=== PATIENT | female | born 1950 | race Caucasian/White ===

== ENCOUNTER → 2017-04-14 12:15 | Outpatient (CLI) | payer MEDICARE, SELFPAY ==
[2017-04-14 12:40] VITALS: PULSE 102; PULSE 104; PULSE 109; PULSE 115; PULSE 116; PULSE 118; PULSE 79; O2SAT 89; O2SAT 90; O2SAT 92; O2SAT 93
--- NOTE | 2017-04-14 13:26 | WT_ITS ---
PSN 6 Minute Walk Test - 6 Minute Walk Test 6 Minute Walk Test: 6 Minute Walk Test PSN:6-Minute Walk Test Start: 04/14/17 12: 40 Freq: Status: Active Protocol: [id number] Document 04/14/17 12:40 HG (Rec: 04/14/17 12:45 HG [id number]) 6 Minute Walk Test Date Performed 04/14/17 Time Performed 12:30 Height 5 ft 3 in Weight: 180 lb Weight in Pounds [address]: Kenan Sun Assistive device used: None Pre-test Oxygen Delivery Method Room Air Pulse Ox (%) 92 Pulse Rate (60-100 beats/min) 79 Dyspnea Herminia Scale (0-10) 1 Exertion Herminia Scale (6-20) 6 1st minute Oxygen Delivery Method Room Air Pulse Ox (%) 93 Pulse Rate (60-100 beats/min) 104 H 2nd minute Oxygen Delivery Method Room Air Pulse Ox (%) 90 Pulse Rate (60-100 beats/min) 109 H 3rd minute Oxygen Delivery Method Room Air Pulse Ox (%) 90 Pulse Rate (60-100 beats/min) 118 H 4th minute Oxygen Delivery Method Room Air Pulse Ox (%) 89 Pulse Rate (60-100 beats/min) 115 H 5th minute Oxygen Delivery Method Room Air Pulse Ox (%) 90 Pulse Rate (60-100 beats/min) 116 H 6th minute Oxygen Delivery Method Room Air Pulse Ox (%) 90 Pulse Rate (60-100 beats/min) 118 H Post-test Oxygen Delivery Method Room Air Pulse Ox (%) 93 Pulse Rate (60-100 beats/min) 102 H Dyspnea Herminia Scale (0-10) 1 Exertion Herminia Scale (6-20) 6 Full Laps Walked 20 Partial Lap, Number of Tiles Walked 0 Total Distance Walked (ft) 1180 - Interpretation Interpretation: The patient ambulated 1180 feet over the course of 6 minutes on room air without assistive devices or breaks. Pretesting oxygen saturation was noted to be 92% on room air. With ambulation, the kumar oxygen saturation was 89%. The patient did develop physiologic tachycardia with exertion. - Recommendations Recommendations: There is no indication for the use of supplemental oxygen at this time. However , close interval follow-up is recommended given the degree of oxygen desaturation to 89% noted during this study.
== END ==
PROVIDERS: Visit Provider Internal Medicine Critical Care Medicine
DX: J44.9 Chronic obstructive pulmonary disease, unspecified (principal); R09.02 Hypoxemia; F17.200 Nicotine dependence, unspecified, uncomplicated
CPT/HCPCS: 94618